=== PATIENT | male | born 1980 | race Caucasian/White ===

== ENCOUNTER 2017-05-13 11:18 | Emergency (ER) | payer SELFPAY ==
[~2017-05-13] VITALS: Ht 180.3 cm; Wt 69.0 kg
[~2017-05-13 11:18] MED LIST: SULF1TAB47 PO; TRAM-388 PO
[2017-05-13 11:19] VITALS: BP 162/90; PULSE 70; RESP 20; TEMP 97.9; O2SAT 97
--- NOTE | 2017-05-13 12:16 | PD ---
HPI Chief Complaint: Skin Problem Time Seen by Provider: 12:14 Travel History International Travel<30 days: No Contact w/Intl Traveler<30days: No Traveled to known affect area: No History of Present Illness HPI 37-year-old male presents emergency Department with complaint of lesions to his right calf, right thigh, left calf, and right elbow. He thinks he might have impetigo. The first one appeared a week ago. Denies fever, vomiting. Denies drainage from the sites. Reports sites are painful. No one else with similar symptoms. Symptoms are mild in severity. Has not taken any medications or tried any treatments to alleviate his symptoms. No known aggravating or relieving factors. No known allergies. Has no acute medical complaints. No other medical factors or associated signs and symptoms. 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) Cardiovascular Problems: Yes (IRREGULAR HEART BEAT PER PATIENT) Social History Alcohol Use: Yes (3 DRINKS A DAY) Tobacco Use: Yes (1/2 PPD ) Substance Use: No Allergies-Medications (Allergen,Severity, Reaction): Coded Allergies: No Known Allergies (Verified , 05/13/17) Reported Meds & Prescriptions Reported Meds & Active Scripts Active Ibuprofen 800 Mg Tab 800 Mg PO Q6HR PRN Bactrim DS (Sulfamethoxazole-Trimethoprim) 800-160 Mg Tab 1 Tab PO BID 10 Days Keflex (Cephalexin) 500 Mg Cap 500 Mg PO Q6H 10 Days Ultracet 37.5/325 Tab (Tramadol/Acetaminophen) 1 Tab Tab 1 Tab PO Q6 PRN Bactrim Ds (Trimethoprim/Sulfamethoxazole) Tab 1 Tab PO BID 7 Days Review of Systems Except as stated in HPI: all other systems reviewed are Neg Physical Exam Narrative GENERAL: Well-nourished, well-developed male patient, in no acute distress; afebrile, nontoxic-appearing SKIN: Warm and dry. Right medial calf and thigh with 2 crusted lesions; the one on the thigh is surrounded with erythema; left calf with crusted lesion, right elbow with crusted lesion. All areas are without drainage. HEAD: Atraumatic. Normocephalic. EYES: Pupils equal and round. No scleral icterus. No injection or drainage. ENT: Mucosa pink and moist. Airway patent. NECK: Trachea midline. CARDIOVASCULAR: Regular rate. RESPIRATORY: No accessory muscle use. GASTROINTESTINAL: Flat. MUSCULOSKELETAL: No obvious deformities. No clubbing. No cyanosis. No edema. NEUROLOGICAL: Awake and alert. Oriented 3. No obvious cranial nerve deficits. Motor grossly within normal limits. Normal speech. PSYCHIATRIC: Appropriate mood and affect; insight and judgment normal. Data Data Last Documented VS Vital Signs Date Time Temp Pulse Resp B/P (MAP) Pulse Ox O2 Delivery O2 Flow Rate FiO2 05/13/17 11:19 97.9 70 20 162/90 (114) 97 Room Air [facility] Medical Decision Making Medical Screen Exam Complete: Yes Emergency Medical Condition: Yes Medical Record Reviewed: Yes Differential Diagnosis Impetigo, MRSA, staph infection Narrative Course 37-year-old male with a nonspecific skin eruption. He is afebrile and nontoxic- appearing. Denies fever, vomiting. None of the areas are draining any purulent drainage, so was unable to obtain a wound culture. Keflex, Bactrim, ibuprofen prescribed for home. Instructed patient to follow up with primary care provider. Patient verbalizes understanding and agreement with treatment plan. Patient is medically cleared and stable for discharge. Discussed reasons to return to the emergency department. Patient agrees with treatment plan. The patients vital signs are stable and the patient is stable for outpatient follow-up and treatment. Patient discharged home, stable and in no acute distress. Diagnosis Primary Impression: Rash and nonspecific skin eruption Referrals: Primary Care Physician Patient Instructions: General Instructions, Impetigo (ED), MRSA (Methicillin- Resistant Staphylococcus Aureus) (ED) Additional Instructions: Complete full course of antibiotics Warm compresses to the affected area Keep area clean and dry Ibuprofen or Tylenol as directed and as needed for pain and inflammation Follow-up with primary care provider Return to emergency department immediately with worsening of symptoms Med/Other Pt SpecificInfo: Prescription(s) given Scripts Ibuprofen (Ibuprofen) 800 Mg Tab 800 MG PO Q6HR Y for PAIN, #30 TAB 0 Refills Prov: Tatiana Camara 05/13/17 Sulfamethoxazole-Trimethoprim (Bactrim DS) 800-160 Mg Tab 1 TAB PO BID for Infection for 10 Days, TAB 0 Refills Prov: Tatiana CamaraP 05/13/17 Cephalexin (Keflex) 500 Mg Cap 500 MG PO Q6H for Infection for 10 Days, CAP 0 Refills Prov: Tatiana Camara 05/13/17 Disposition: 01 DISCHARGE HOME Condition: Stable Tatiana Camara [facility] May 13, 2017 12:16
[2017-05-13] MEDS ORDERED: IBUP800T23 PO (12:18)
[2017-05-13] MEDS ORDERED: CEPH-460 PO (12:18)
[2017-05-13] MEDS ORDERED: BACT800T5 PO (12:18)
== END 2017-05-13 12:42 | disposition home or self-care (01) ==
LOC: NEPK 11:18
DX: R21 Rash and other nonspecific skin eruption (principal); F17.290 Nicotine dependence, other tobacco product, uncomplicated
CPT/HCPCS: 99284

== ENCOUNTER 2017-07-30 09:46 | Emergency (ER) | payer SELFPAY ==
[~2017-07-30] VITALS: Ht 170.2 cm; Wt 72.0 kg
[~2017-07-30 09:46] MED LIST changes: +BACT800T5 PO; +CEPH-460 PO; +IBUP1TAB7 PO
[2017-07-30 09:47] VITALS: BP 142/77; PULSE 80; RESP 14; TEMP 98.4; O2SAT 98
--- NOTE | 2017-07-30 11:41 | PD ---
HPI Chief Complaint: Injury Time Seen by Provider: 10:14 Travel History International Travel<30 days: No Contact w/Intl Traveler<30days: No Traveled to known affect area: No History of Present Illness HPI patient has previous history of hand, particularly his thumb/first and second digit developing numbness and tingling. this is more sustained than usual, has happened to both hands but right is worse. denies any other neuro loss any where else. 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 HEAD: Atraumatic. Normocephalic. EYES: Pupils equal and round. No scleral icterus. No injection or drainage. ENT: No nasal bleeding or discharge. Mucous membranes pink and moist. NECK: Trachea midline. No JVD. CARDIOVASCULAR: Regular rate and rhythm. RESPIRATORY: No accessory muscle use. Clear to auscultation. Breath sounds equal bilaterally. GASTROINTESTINAL: Abdomen soft, non-tender, nondistended. MUSCULOSKELETAL: Extremities without clubbing, cyanosis, or edema. No obvious deformities. NEUROLOGICAL: Awake and alert. No obvious cranial nerve deficits. Motor grossly within normal limits. Five out of 5 muscle strength in the arms and legs. Normal speech. of note positive tinnel sign on right, great radial pulse , great outpatient coder PSYCHIATRIC: Appropriate mood and affect; insight and judgment normal. Data Data Last Documented VS Vital Signs Date Time Temp Pulse Resp B/P (MAP) Pulse Ox O2 Delivery O2 Flow Rate FiO2 07/30/17 09:47 98.4 80 14 142/77 (98) 98 Orders Orders Us Arm Venous Doppler (07/30/17 11:36) Support Splint (07/30/17 11:41) [facility] Medical Decision Making Medical Screen Exam Complete: Yes Emergency Medical Condition: Yes Medical Record Reviewed: Yes Differential Diagnosis dvt v carpal tunnel syndrome Narrative Course ultrs neg for dvt, and is found to have clinical findings of carpal tunnel syndrome, velcro splint applied and will d/c now Diagnosis Primary Impression: Carpal tunnel syndrome of right wrist Referrals: Jovan Wilson III, MD for further care of your carpal tunnel symptoms Patient Instructions: Carpal Tunnel Syndrome (DC), General Instructions Disposition: 01 DISCHARGE HOME Condition: Stable Jose Austin MD Jul 30, 2017 11:41
--- NOTE | 2017-07-30 12:33 | RADRPT ---
EXAM DATE/TIME: 07/30/2017 12:03 [place] COMPARISON: No previous studies available for comparison. INDICATIONS : Right arm swelling and pain. MEDICAL HISTORY : Irregular heartbeat. Tobacco use. SURGICAL HISTORY : Right index finger tendon repair. ENCOUNTER: Initial ACUITY: 3 days PAIN SCORE: 5/10 LOCATION: Right arm. FINDINGS: There is spontaneous flow documented in the brachial, basilic, cephalic, axillary, and subclavian vei ns. The vessels are compressible and augmentation response is documented. No filling defects are se en. The flow is phasic with respiration. Direction of flow in the jugular vein is caudal. CONCLUSION: Negative for deep venous thrombosis.. Brad Lewis MD FACR on July 30, 2017 at 12:31 Board Certified Radiologist. This report was verified electronically.
[2017-07-30] MEDS ORDERED: TRAM50 PO (13:02)
== END 2017-07-30 13:26 | disposition home or self-care (01) ==
LOC: NEPD 09:46
DX: G56.01 Carpal tunnel syndrome, right upper limb (principal); R20.0 Anesthesia of skin; R20.2 Paresthesia of skin; Z72.0 Tobacco use
CPT/HCPCS: 93971; 99284; L3908